=== PATIENT | female | born 1995 | race Asian ===

== ENCOUNTER 2022-06-27 09:50 | Inpatient (IN) | payer OTHER ==
[2022-06-27] VITALS (32 sets, daily range): BP systolic 93–153; BP diastolic 45–91; PULSE 51–110; TEMP 98.1–98.6
[~2022-06-27] VITALS: Ht 162.6 cm; Wt 84.1 kg
[2022-06-27] MEDS ORDERED: PRENATAL FORMU1 EAC3 PO (10:41)
--- NOTE | 2022-06-27 11:05 | NUR ---
1000 PAITENT HERE FOR COMPLAINTS OF RUPTURE MEMBRANES AROUND 0930 FOR A BIG GUSH OF FLUID. ASSESSMENT COMPLETED AT THIS ITME. EFM ON FHT 125, BABY VERY ACTIVE. OCCASIONAL CONTRACTIONS NOTED PALPATED MILD. SVE /-1 WITH LARGE AMOUNT CLEAR FLUID. AMNIOTRACE POSITIVE AT THIS TIME. DR OWENS CALLED AND UPDATED ON ALL ABOVE INFORMATION. ORDERS GIVEN TO [facility] FOR LABOR AND EPIDURAL OK.
--- NOTE | 2022-06-27 11:13 | NUR ---
1030 DR OWENS AT BEDSIDE TO TALK WITH PATIENT AND . ORDERS TO START PITOCIN AT THIS TIME.
[2022-06-27 11:14] LABS: BASO % 0.2 % (0.0-2.0); EOS # 0.1 K/mm3 (0.0-0.7); GRAN # 7.2 K/mm3 (1.4-6.5); GRAN % 74.8 % (42.2-75.2); HEMATOCRIT 38.1 % (37.0-47.0); HEMOGLOBIN 12.8 g/dl (12.5-16.0); LYMPH # 1.6 K/mm3 (1.2-3.4); LYMPH % 16.5 % (20.0-51.0); MEAN CELL VOLUME 84 fl (80.0-100.0); MEAN CORPUSCULAR HEMOGLOBIN 28 pg (27-31); MEAN CORPUSCULAR HGB CONC 34 g/dl (33.0-37.0); MEAN PLATELET VOLUME 11.5 fl (7.4-10.4); MONO # 0.6 K/mm3 (0.1-0.6); MONO % 6.6 % (1.7-9.3); PLATELET COUNT 215 K/mm3 (130-400); RED BLOOD COUNT 4.55 M/mm3 (4.10-5.30); REDCELL DISTRIBUTION WIDTH-CV 13.2 % (11.5-14.5)
--- NOTE | 2022-06-27 12:30 | NUR ---
1230 THIS RN AT BEDSIDE. PT SITTING UP ON SIDE OF BED TO PREPARE FOR ANASTHESIA. UNABLE TO TRACE EFM DUE TO MATERNAL POSTION. EFM TRACING CATEGORY 1 BEFORE POSITION CHANGE. BLOOD PRESSURE CUFF AND PULSE OX ON PT. LR BOLUS RINNING AT THIS TIME. 1251 TEST DOSE ADMINISTERED BY PRABHAKAR SERRANO. PT TOLERATED WELL. EFM TRACING CATEGORY 1. VITAL SIGNS STABLE. 1254 PT RETURNED TO LEFT LATERAL POSITION. VITAL SIGNS STABLE. EFM TRACING CATEGORY 1. WILL CONTINUE TO MONITOR.
--- NOTE | 2022-06-27 15:45 | NUR ---
1546 SVE PT COMPLETE, +[address] OWENS. PT COMPLETE, +2 STATION, READY FOR YOU AT BEDSIDE. 1555 STARTED PUSHING WITH PT. GOOD MATERNAL EFFORTS. [address] M[address] DR. OWENS. SECOND DEGREE PERINEAL TEAR. PLACED ON MATERNAL ABDOMEN. DRIED AND STIMULATED. CARE OF ASSUMED BY JORGE CALIXTO RN. CORD CLAMPED AND CUT BY FOB. [address] OWENS. FUNDUS FIRM AT UMBILICUS, PITOCIN BOLUS INFUSING PER PROTOCOL. DR. OWENS BEGINS REPAIR OF 2ND DEGREE LACERATION. LOCHIA WNL. VITAL SIGNS WNL. WILL CONTINUE TO MONITOR.
--- NOTE | 2022-06-27 19:15 | NUR ---
Epidural dc'd. up to bathroom with steady gait. Unable to void at this time. Pericare performed. Pt reports "I'm a little nauseated, maybe a little dizzy" Pad and panties on, back to bed without difficulty. To postparum room via wheelchair. Pt and spouse instructed to call for staff assistance before getting out of bed.
[2022-06-28 03:10] VITALS: BP 99/58; PULSE 65; TEMP 98.3
[2022-06-28 07:30] VITALS: BP 103/67; PULSE 60; TEMP 98
[2022-06-28] MEDS ORDERED: IBU800 M1 PO (09:14)
== END 2022-06-28 17:55 | disposition home or self-care (01) | DRG 807 ==
LOC: LDRO 09:50 → LDR 10:18 → OB 19:15
PROVIDERS: ADMIT Obstetrics & Gynecology
PROC: 10E0XZZ Delivery of Products of Conception, External Approach (ICD-10-PCS; principal; 2022-06-27)
PROC: 0KQM0ZZ Repair Perineum Muscle, Open Approach (ICD-10-PCS; 2022-06-27)
PROC: 3E033VJ Introduction of Other Hormone into Peripheral Vein, Percutaneous Approach (ICD-10-PCS; 2022-06-27)
DX: O99.824 Streptococcus B carrier state complicating childbirth (principal); Z37.0 Single live birth; Z3A.39 39 weeks gestation of pregnancy; O70.1 Second degree perineal laceration during delivery
CPT/HCPCS: J2540; J2590; J7120

== ENCOUNTER → 2022-07-02 | Outpatient (CLI) | payer OTHER ==
[~2022-07-02] MED LIST: IBU800 M1 PO; PRENATAL FORMU1 EAC3 PO
--- NOTE | 2022-07-02 14:06 | NUR ---
Pt, Anna Callaway, presents to walk-in clinic with 5 day old baby boy, Justin Callaway, for help. She states she has not been able to get Justin latched without a nipple shield, that he was at 9% wt loss at his doctor appt 2 days ago, and even with th shield she got a sore nipple on the left. Pt and this LC had a telephone conversation yesterday and she elected to pump and bottle feed until we could work together. She is pumping q 2-3 hours, feeding him 2-3 oz EBM on the same frequency. She states she has noted an increase in voids and stools with the pumping and bottle feeding. Justin was born on [birth year] by and weighed 8# 7.8oz (3850 gms). Today Justin weighs 7# 15.6oz (3616 gms). Pt's breasts are pretty full at this time, she pumped almost 3 hours ago, when Justin last ate. LC instruct pt how to stimlate nipple to hemal it better, how to use cross cradle to lydia baby and breast, and bring baby to breast for a deep latch. After a few attempt Justin latches well, with several swallows noted. Justin is interrupted on the right breast to get practice latching on the left, he has a weight gain of 1.5oz (44 gms), and initially is content enough he would not latch on the left. Nipple shield is placed and with a good it of stimulation he finally engages. Total weight gain is 2.6 oz (74 gms). Justin is very content. Pt will continue using suggestions and techniques learned here. She will let him finish the first breast before offering second breast after noting he could be difficult to get re-started on the second side. She will use EBM by bottle if he will not nurse. She will follow up at walk-in clinic as desired for BF help and weight checks. Questions invited and answered.
== END ==
LOC: COL.LAB 13:06 → LAC 13:13 → COL.LAB 13:13
DX: Z39.1 Encounter for care and examination of lactating mother (principal)

== ENCOUNTER → 2022-07-09 | Outpatient (CLI) | payer OTHER ==
--- NOTE | 2022-07-09 13:24 | NUR ---
PT, Anna Callaway presents to walk-in clinic with 12 day old baby boy, Justin Callaway, for a weight check. Justin was born on [birth year] and weighed 8# 7.8oz. Last week he weighed 7# 15.6oz. Today Justin weighs 8# 10.8oz. Pt states she primarily pumps and bottle feeds. She likes being able to measure his intake. Pt pumps every 2-3 hours, collects 6-7oz per session. Justin drinks 3-4oz per feeding so she is able to save some milk for return to work. POC: Continue feeding and pumping ad paris. F/U: As scheduled with doctors, and walk-in clinic prn. Questions invited and answered.
== END ==
LOC: LAC 13:01
DX: Z39.1 Encounter for care and examination of lactating mother (principal)

== ENCOUNTER → 2022-07-16 | Outpatient (CLI) | payer OTHER ==
--- NOTE | 2022-07-16 17:35 | NUR ---
Pt, Anna Callaway, presents to walk-in clinic with 19 day old baby boy, Justin Callaway for a weight check. Justin was born on [birth year] and weighed 8# 7.8oz. Last week he weighed 8# 10.8oz. Today he weighs 9# 8.2oz. Pt has questions about milk supply as she is being treated for mastitis and supply has dropped. Information about increasing supply provided. POC: Continue and or pumping and bottle feeding ad paris. F/U: As scheduled with physicians and walk in BF clinic prn.
== END ==
LOC: LAC 13:40
DX: Z39.1 Encounter for care and examination of lactating mother (principal)